=== PATIENT | male | born 2000 | race African-American/Black ===

== ENCOUNTER 2023-03-30 10:48 | Day surgery (SDC) | payer OTHER ==
[~2023-03-30] VITALS: Ht 172.7 cm; Wt 101.4 kg
[2023-03-30 12:54] LABS: BASO % 0.5 % (0.0-1.0); EOS # 0.2 10^3/uL (0.0-0.5); EOS % 2.5 % (0.0-3.0); HEMATOCRIT 45.2 % (42.0-52.0); HEMOGLOBIN 14.3 g/dl (13.5-17.5); LYMPH # 1.4 10^3/uL (1.5-5.0); LYMPH % 23.8 % (24.0-44.0); MEAN CORPUSCULAR HEMOGLOBIN 27.5 pg (27.0-33.0); MEAN CORPUSCULAR HGB CONC 31.6 g/dl (32.0-36.5); MEAN CORPUSCULAR VOLUME 86.9 fl (80.0-96.0); MONO # 0.5 10^3/uL (0.0-0.8); MONO % 7.6 % (2.0-8.0); NEUTROPHILS # 3.9 10^3/uL (1.5-8.5); NEUTROPHILS % 65.3 % (36.0-66.0); PLATELET COUNT, AUTOMATED 206 10^3/uL (150-450)
[2023-03-30 13:20] LABS: LIPASE 33 U/L (12-53)
[2023-03-30 13:22] LABS: ALBUMIN 4.2 G/DL (3.2-5.2); ALKALINE PHOSPHATASE 84 U/L (46-116); ALT/SGPT 24 U/L (7.0-40); AST/SGOT 55 U/L (<34); BILIRUBIN,DIRECT 0.8 MG/DL (<0.4); BILIRUBIN,TOTAL 2.6 MG/DL (0.3-1.2); BLOOD UREA NITROGEN 9 MG/DL (9-23); CALCIUM LEVEL 9.3 MG/DL (8.5-10.1); CARBON DIOXIDE LEVEL 29 MMOL/L (20-31); CHLORIDE LEVEL 100 MMOL/L (98-107); CREATININE FOR GFR 0.97 MG/DL (0.70-1.30); GLOMERULAR FILTRATION RATE > 60.0 (>60); GLUCOSE, FASTING 83 MG/DL (60-100); POTASSIUM SERUM 4.3 MMOL/L (3.5-5.1); SODIUM LEVEL 137 MMOL/L (136-145); TOTAL PROTEIN 7.8 G/DL (5.7-8.2)
[2023-03-30] MEDS ORDERED: NS 1,000 ML IV ONE (13:45)
[2023-03-30] MEDS ORDERED: ONDANSETRON 4MG 2ML VIAL IV ONE (13:45)
[2023-03-30] MEDS ORDERED: KETOROLAC 30 MG/ML 1ML VIAL IV ONE (13:45)
[2023-03-30] MEDS ORDERED: ISOVUE-370 76% 100ML VIAL As Ordered ONE (14:42)
[2023-03-30] MEDS ORDERED: PIPERACILLIN/TAZOBACTAM SOD 4.5 GM in D5W MINI-BAG PLUS 50 ML IV ONE (16:05)
[2023-03-30] MEDS ORDERED: HOME MED LIST COMPLETE! XX SCH (18:25)
[2023-03-30] MEDS ORDERED: ONDANSETRON 4MG 2ML VIAL As Ordered ONE (19:53)
[2023-03-30] MEDS ORDERED: ACETAMINOPHEN 1000MG 100ML IV BAG As Ordered ONE (19:53)
[2023-03-30] MEDS ORDERED: LIDOCAINE 2% 100MG/5ML SDV (FOR ANES.) As Ordered ONE (19:53)
[2023-03-30] MEDS ORDERED: ROCURONIUM BROMIDE 50MG/5ML VIAL As Ordered ONE (19:53)
[2023-03-30] MEDS ORDERED: propofoL 200 MG/20 ML VIAL As Ordered ONE (19:53)
[2023-03-30] MEDS ORDERED: SUGAMMADEX SODIUM 500 MG/5 ML VIAL (BRIDION) As Ordered ONE (19:53)
[2023-03-30] MEDS ORDERED: KETAMINE HCL 200MG/20ML VIAL As Ordered ONE ×2 (19:55→19:56)
[2023-03-30] MEDS ORDERED: MIDAZOLAM INJ 2MG/2ML VIAL As Ordered ONE (19:55)
[2023-03-30] MEDS ORDERED: fentaNYL 100 MCG/2 ML INJECTION As Ordered ONE (19:55)
[2023-03-30] MEDS ORDERED: NORCO, ANEXSIA 5/325MG TABLET (HYDROcodone/ACETAMINOPHEN) PO PRN ×2 (20:05)
[2023-03-30] MEDS ORDERED: KETOROLAC 30 MG/ML 1ML VIAL IV PRN (20:05)
[2023-03-30] MEDS ORDERED: ONDANSETRON 4MG 2ML VIAL IV PRN (20:05)
[2023-03-30] MEDS ORDERED: KETOROLAC 60MG 2ML VIAL As Ordered ONE (20:55)
[2023-03-30 22:00] VITALS: BP 164/81; TEMP 97; O2SAT 99
[2023-03-30] MEDS: PIPERACILLIN/TAZOBACTAM SOD 3.375 GM in D5W MINI-BAG PLUS 50 ML IV SCH (22:28)
[2023-03-30 22:30] VITALS: BP 156/72; TEMP 97.7; O2SAT 97
[2023-03-30] MEDS: NS 1,000 ML IV SCH (22:30)
[2023-03-30] MEDS: SENOKOT S TAB PO SCH (22:31)
[2023-03-30 23:10] VITALS: BP 141/72; TEMP 97.9; O2SAT 98
[2023-03-30 23:59] VITALS: BP 135/68; TEMP 97.9; O2SAT 96
[2023-03-31 00:55] VITALS: BP 138/63; TEMP 97.8; O2SAT 97
[2023-03-31 01:32] VITALS: BP 144/64; TEMP 98; O2SAT 98
[2023-03-31] MEDS: PIPERACILLIN/TAZOBACTAM SOD 3.375 GM in D5W MINI-BAG PLUS 50 ML IV SCH ×2 (04:00→08:40)
[2023-03-31] MEDS: NS 1,000 ML IV SCH (04:05)
[2023-03-31 05:39] VITALS: BP 120/56; TEMP 97.5; O2SAT 99
[2023-03-31] MEDS: SENOKOT S TAB PO SCH (08:40)
[2023-03-31] MEDS ORDERED: HYDR-3715 PO (09:01)
== END 2023-03-31 10:30 | disposition home or self-care (01) ==
LOC: M ED 10:48 → M OROP 16:13 → ENRESERV 20:56 → M MS4PR 21:57 → M OROP 03-31 10:30
PROVIDERS: ATTEND Surgery
DX: K35.890 Other acute appendicitis without perforation or gangrene (principal)
CPT/HCPCS: 44970; 74177; 80048; 80076; 81001; 83690; 85025; 87635; 88304; 96361; 96365; 96366; 96375; 99284; J0131; J0665; J1100; J1885; J2250; J2405; J2543; J3010; Q9967